=== PATIENT | male | born 1935 | race Caucasian/White ===

== ENCOUNTER 2018-08-12 11:02 | Outpatient (CLI) | payer OTHER | END 2018-08-12 11:07 | disposition home or self-care (01) | LOC: SONOGRAMA 11:02 | DX: N20.0 Calculus of kidney (principal); N40.1 Benign prostatic hyperplasia with lower urinary tract symptoms ==

== ENCOUNTER 2024-02-08 15:58 | Emergency (ER) | payer OTHER ==
[~2024-02-08] VITALS: Ht 177.8 cm; Wt 61.2 kg
[2024-02-08] MEDS ORDERED: TAMS0.4C PO (16:04)
[2024-02-08] MEDS ORDERED: EZETIMIBE10 MG PO (16:04)
[2024-02-08] MEDS ORDERED: ATORVASTATIN CA40 MG PO (16:05)
[2024-02-08] MEDS ORDERED: ACETAMINOPHEN 500 MG GEL..CAP PO ONE (16:31)
== END 2024-02-08 17:10 | disposition home or self-care (01) ==
LOC: ER 16:00
DX: R33.9 Retention of urine, unspecified (principal)